=== PATIENT | female | born 1980 | race Two or more races ===

== ENCOUNTER 2020-05-22 09:22 | Emergency (ER) | payer SELFPAY ==
[~2020-05-22] VITALS: Ht 157.5 cm; Wt 68.6 kg
[2020-05-22 09:32] VITALS: BP 113/79
[2020-05-22] MEDS ORDERED: ONDANSETRON ODT 4 MG PO ONE (10:00)
[2020-05-22] MEDS ORDERED: KETOROLAC 30 MG/1 ML IM ONE (10:00)
[2020-05-22] MEDS ORDERED: ONDANSETRON ODT 4 MG ONE (10:05)
[2020-05-22] MEDS ORDERED: KETOROLAC 30 MG/1 ML ONE (10:05)
== END 2020-05-22 11:10 | disposition home or self-care (01) ==
LOC: ED 10:34
DX: U07.1 COVID-19 (principal); J12.89 Other viral pneumonia; M79.10 Myalgia, unspecified site; R07.9 Chest pain, unspecified
CPT/HCPCS: 71045; 93005; 96372; 99283; J1885; Q0162